=== PATIENT | male | born 1990 | race American Indian/Alaskan Native ===

== ENCOUNTER 2021-11-20 15:54 | Emergency (ER) | payer MEDICARE ==
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
[2021-11-20] MEDS ORDERED: HYDROcodone/ACETAMINOPHEN 5-325 MG TAB PO ONE (18:00)
[2021-11-20] MEDS ORDERED: TETANUS,DIPH,PERTUSS(ACELL) VACCINE 0.5 ML SYRINGE IM ONE (18:00)
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
[2021-11-21] MEDS ORDERED: levETIRAcetam 500 MG TAB PO ONE (07:23)
[2021-11-21 12:59] VITALS: BP 113/80
== END 2021-11-21 12:59 | disposition home or self-care (01) ==
LOC: ED 15:54
DX: S00.81XA Abrasion of other part of head, initial encounter (principal); R56.9 Unspecified convulsions; J45.909 Unspecified asthma, uncomplicated; Y08.89XA Assault by other specified means, initial encounter; Y93.89 Activity, other specified; Y92.89 Other specified places as the place of occurrence of the external cause; Y99.8 Other external cause status
CPT/HCPCS: 70450; 82962; 90471; 90715; 99284

== ENCOUNTER 2021-11-22 12:30 | Emergency (ER) | payer MEDICARE ==
[2021-11-22] MEDS ORDERED: diphenhydrAMINE 50 MG/ML VIAL IM PRN (12:32)
[2021-11-22] MEDS ORDERED: HALOPERIDOL LACTATE 5 MG/1 ML INJ IM PRN (12:32)
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
[2021-11-22] MEDS: LORazepam 2 MG/ML VIAL IM PRN (12:59)
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
[2021-11-24] MEDS ORDERED: LORazepam 2 MG/ML VIAL IV ONE (20:01)
[2021-11-24] MEDS: LORazepam 2 MG/ML VIAL IM PRN (20:06)
[2021-11-25] MEDS: LORazepam 2 MG/ML VIAL IM PRN (10:51)
[2021-11-25] MEDS ORDERED: levETIRAcetam 1000 MG/NS 0.75% 1,000 MG/100 ML BAG IV ONE (11:20)
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
[2021-11-25] MEDS ORDERED: SODIUM CHLORIDE 0.9% 1000 ML 1,000 ML IV ONE (11:48)
[2021-11-25 12:48] LABS: Basophils # (Auto) 0.1 K/mm3 (0.0-0.1); Basophils % (Auto) 2.8 % (0.0-1.8); Eosinophils % (Auto) 0.1 % (0.0-4.3); Hematocrit 44.3 % (35.5-45.6); Hemoglobin 14.7 gm/dl (11.8-15.2); Lymphocytes % (Auto) 18.6 % (13.4-35.0); Mean Corpuscular HGB Conc 33 % (32-34); Mean Corpuscular Volume 86 fl (84-94); Monocytes # (Auto) 0.5 K/mm3 (0.0-0.8); Monocytes % (Auto) 8.7 % (0.0-7.3); Platelet Count 218 K/mm3 (140-440); Red Blood Count 5.16 M/mm3 (3.65-5.03); Red Cell Distribution Width 12.7 % (13.2-15.2)
[2021-11-25 12:59] LABS: BUN/Creatinine Ratio 13; Blood Urea Nitrogen 14 mg/dL (9-20); Calcium 9.5 mg/dL (8.4-10.2); Hemolysis Index 5
[2021-11-25] MEDS ORDERED: VALPROATE SODIUM 500 MG in SODIUM CHLORIDE 0.9% 100 ML IV ONE (14:38)
[2021-11-25] MEDS: DIVALPROEX DR 500 MG TAB PO SCH (22:15)
[2021-11-25] MEDS ORDERED: ACETAMINOPHEN 325 MG TAB PO PRN (22:53)
[2021-11-26] MEDS: DIVALPROEX DR 500 MG TAB PO SCH (10:33)
--- NOTE | 2021-11-26 11:55 | Event Note ---
Date: 11/26/21 pt was placed in [place] , transportation has been arranged, pt is stable no distress
[2021-11-26 14:38] VITALS: BP 132/88
== END 2021-11-26 19:10 | disposition home or self-care (01) ==
LOC: ED 12:30
DX: S09.90XD Unspecified injury of head, subsequent encounter (principal); J45.909 Unspecified asthma, uncomplicated; Z91.49 Other personal history of psychological trauma, not elsewhere classified; Z79.899 Other long term (current) drug therapy; Y04.8XXD Assault by other bodily force, subsequent encounter
CPT/HCPCS: 36415; 70450; 80048; 80164; 83735; 85025; 96361; 96365; 96372; 99285; J1200; J1630; J1953; J2060; J7030; Q0162